=== PATIENT | female | born 1960 | race Caucasian/White ===

== ENCOUNTER 2024-02-27 09:52 | Emergency (ER) | payer MEDICARE, OTHER ==
[2024-02-27] MEDS ORDERED: guaiFENesin ER 600 MG TAB ONE (11:04)
[2024-02-27] MEDS ORDERED: Acetaminophen 500 MG TAB ONE (11:04)
== END 2024-02-27 12:02 | disposition home or self-care (01) ==
LOC: NAV ERS 09:52
DX: B34.9 Viral infection, unspecified (principal); N18.6 End stage renal disease; F17.210 Nicotine dependence, cigarettes, uncomplicated; Z99.2 Dependence on renal dialysis; Z79.01 Long term (current) use of anticoagulants; Z79.899 Other long term (current) drug therapy
CPT/HCPCS: 71046; 87428; 93005